=== PATIENT | female | born 1965 | race Caucasian/White ===

== ENCOUNTER 2017-01-15 10:35 | Observation (INO) | payer BC ==
--- NOTE | ~2017-01-15 | DS ---
Discharge Summary [facility] [address] [place]. [address] NAME: LE RIZZO : 61 STATUS : DIS Uvaldo PAT#: [id number] AGE: 51 ADM/REG DATE : 01/15/17 MR#: [id number] REPORT SERV DATE: 01/16/17 DICTATED BY: NANY SILVA DATE: 01/16/17 REPORT STATUS : Draft TRANSCRIBED BY: MODNeville DATE: 01/16/17 ADMISSION DATE: 01/15/2017 DISCHARGE DATE: 01/16/2017 CONDITION ON DISCHARGE: Stable. DISPOSITION: The patient will be discharged home if she is ambulatory and if she is able to ambulate steadily without feeling imbalanced. The patient will also get a vitamin B12 1000 mcg IM x1 dose shot before discharge. Diagnoses on discharge include the following: Near syncopal episode, probably secondary to hypoglycemia related to her gastric bypass or gastric sleeving surgery. This has resolved with IV fluids. The patient has received IV D5 and a half normal saline and feels much better. The patient has been advised to do eat more frequently and snack at least every two to three hours with healthy snacking and healthy snacking options provided to the patient. She is also advised to eat at least three small meals a day to avoid more hypoglycemic episodes like this. Other diagnoses that are chronic in this patient include the following: History of questionable adrenal insufficiency. This is being followed by Dr. Rudd as an outpatient basis. The patient states that she takes hydrocortisone that she has with her on a p.r.n. basis and takes it only when she feels hypoglycemic or feels like tired. She states that she took one yesterday. Hence, any testing that is going to be done in this patient now is going to be spurious. Hence, this can be tested as an outpatient hopefully when the patient is off hydrocortisone by Dr. Rudd, the emd special education teacher. Her other diagnoses that are stable at this time include, 1. Status post bilateral hip replacement, the most recent one being in the left hip that was done just a few weeks ago for which she is still on Eliquis 2.5 mg twice a day for DVT prevention. 2. Severe osteoarthritis of all the joints mostly of both hips now with hip replacement, which is strange for someone who is as young as 51 years old. 3. Early-onset osteoporosis for which patient is on medications and takes estrogen and testosterone supplements. 4. Depression/anxiety for which she takes Lexapro. 5. Hypothyroidism, stable with levothyroxine. 6. Irritable bowel syndrome-stable with Amitiza. 7. Gastroesophageal reflux disease, stable with omeprazole. 8. History of gastric bypass surgery/gastric sleeving surgery for weight loss as the patient states that she was morbidly obese before the surgery. MEDICATIONS UPON DISCHARGE: All her home medications will exactly remain the same and will be resumed. The patient will be given vitamin B12 1000 mcg intramuscular injection x1 dose before discharge. Discharge Summary [facility] [address] [place]. [address] NAME: LE RIZZO : 61 STATUS : DIS Uvaldo PAT#: [id number] AGE: 51 ADM/REG DATE : 01/15/17 MR#: [id number] REPORT SERV DATE: 01/16/17 DICTATED BY: NANY SILVA DATE: 01/16/17 REPORT STATUS : Draft TRANSCRIBED BY: BRIANL DATE: 01/16/17 Tests that were done and labs on this patient that are relevant include the following. Her hemoglobin A1c was 5.2, which is normal. Her CBC showed a WBC count of 4, hemoglobin 11.4, hematocrit of 35.9, platelet count of 404. Electrolyte profile showed normal electrolytes, BUN and creatinine. Brain natriuretic peptide was normal. Chest x-ray showed no acute cardiopulmonary abnormality. Hence, the patient is being discharged home in stable condition after all these tests have come back normal and the patient feels well. I have spent about 30 minutes coordinating discharge care of this patient including face-to- face encounter and summarizing this discharge. DICTATED BY: Manuel Baeza/LAURIE Nany Silva M.D. / [id number] CC: Manuel Baeza M.D.
--- NOTE | ~2017-01-15 | HP ---
History And Physical [facility] [id number] [place]. [address] NAME: LE DUPONT : 61 STATUS : ADM Uvaldo PAT#: [id number] AGE: 51 ADM/REG DATE : 01/15/17 MR#: [id number] REPORT SERV DATE: 01/15/17 DICTATED BY: NANY SILVA DATE: 01/15/17 REPORT STATUS : Draft TRANSCRIBED BY: MODL DATE: 01/15/17 DATE OF ADMISSION: 01/15/2017 HISTORY OF PRESENT ILLNESS: Ms. Dupont is a 51-year-old female patient who came in this morning to the ER because of near syncopal episode. The patient states that she almost passed out and felt extremely weak this morning, and her blood glucose levels were 44, and hence, she was brought to the emergency room. She states that she was getting ready to go to work and was her usual self, but all of a sudden, she felt extremely dizzy, started perspiring, and felt like passing out and she said that she almost passed out. She denies any headaches, chest pain, blurry vision. But the patient was worried that she does have a history of adrenal insufficiency and she was wondering if this almost passing out episode in anyway related to the adrenal insufficiency itself, and hence, she decided to come in. I examined the patient at bedside and who is a patrol police lieutenant is also at the bedside. At this time, the patient states that she feels extremely weak and is just worried that she almost passed out. Other than that, she has no other symptoms. One time before, the patient states that she was admitted to the intensive care unit with an allergic reaction to doxycycline, and at that time, she was found to be having adrenal insufficiency primary versus secondary and has been seeing Dr. Rudd, the aquatics specialist, for this purpose ever since. The patient since then has been diagnosed with renal tubular acidosis type 4 also. REVIEW OF SYSTEMS: Negative for any headaches, blurry vision, facial droop, neck pain, chest pain, shortness of breath, wheeze, nausea, vomiting, abdominal pain, diarrhea, dysuria, etc. Positive for hip pain and hip discomfort as the patient had a very recent hip replacement of the left hip. The patient actually takes Eliquis for this. She does still have difficulty getting around because of the replaced left hip, but she states that she has already gone back to work and she is already up and moving around even though getting around is a little difficult and different. PAST MEDICAL HISTORY: Significant for bilateral hip replacement, the left one was done most recently. The patient states that both her hips had to be replaced because she had severe osteoarthritis in both hips. The patient also has history of adrenal insufficiency, primary versus secondary; irritable bowel syndrome; status post gastric sleeve surgery; also has history of generalized anxiety. The patient does take Lexapro for this. She also has a history of hypothyroidism and gastroesophageal reflux disease. FAMILY HISTORY: Positive for hypertension in parents. Otherwise, no family history that is contributory to the current problem. SOCIAL HISTORY: The patient does not smoke or drink or do any drugs. She is . ALLERGIES: THE PATIENT DOES HAVE SIGNIFICANT ALLERGIES TO DOXYCYCLINE THAT CAUSED HER TO HAVE ANAPHYLAXIS AND KIDNEY FAILURE. SHE ALSO HAS ALLERGY TO LORTAB AND OXYCONTIN. HOWEVER, THE PATIENT DOES TAKE OXYCODONE COMBINED WITH ACETAMINOPHEN 5/325 ON AN -NEEDED History And Physical [address] [address] NAME: LE DUPONT : 61 STATUS : ADM Uvaldo PAT#: [id number] AGE: 51 ADM/REG DATE : 01/15/17 MR#: [id number] REPORT SERV DATE: 01/15/17 DICTATED BY: NANY SILVA DATE: 01/15/17 REPORT STATUS : Draft TRANSCRIBED BY: LAURIE DATE: 01/15/17 BASIS AT HOME AND SHE STATES SHE DOES FINE WITH THAT STRANGELY. MEDICATIONS: The patient also takes the following medications at home: Amitiza 8 mcg p.o. b.i.d., levothyroxine 100 mcg once a day, Prilosec 40 mg once a day, Lexapro 20 mg once a day, Celebrex 200 mg once a day, Eliquis 2.5 mg p.o. b.i.d. since her recent hip replacement, Percocet 5/325 two tablets every four hours p.r.n. for pain, estradiol and testosterone pellets. PHYSICAL EXAMINATION: GENERAL: The patient is alert, awake, oriented, and she states that she just feels extremely weak in a generalized way. VITAL SIGNS: Her vital signs, however, showed that her blood pressure is 120/57. The patient is afebrile, pulse is 60 per minute, respirations 18 per minute, and O2 sats 100% on room air. HEENT: Unremarkable. There is no facial droop or asymmetry. NECK: There is no JVD or thyromegaly. CARDIOVASCULAR SYSTEM: S1 and S2 appreciated. Sinus rhythm. No murmurs, rubs, or gallops noted. RESPIRATORY SYSTEM: Clear lungs noted. No rales or rhonchi noted. ABDOMEN: Soft, nontender, and nondistended. Bowel sounds are appreciated. No organomegaly noted. No tenderness noted. EXTREMITIES: There is no pedal edema. Pedal pulses are well felt. NEUROLOGICAL: Normal. PSYCHIATRIC: Normal. MUSCULOSKELETAL: Status post bilateral hip replacement, the most recent one being the left hip. LABORATORY DATA: The labs that I have on this patient include a CBC that shows completely normal WBC, hemoglobin and hematocrit is 11.6 and HCT is 35.9, and platelets 429. INR is 1.2. Electrolytes are normal. BUN is normal. Creatinine is normal. Troponin I is normal. Chest x-ray portable shows no acute abnormality. BNP is normal. ASSESSMENT: At this time is near syncope and severe hypoglycemia with a blood glucose level that was recorded at 44, which has come back up to 100+ now after the patient was given glucose. However, the patient does admit to quite severe weakness. Blood pressure is somewhat on the lower side right now also for her according to her. Hence, we will admit the patient for 23-hour observation, check her cortisol level and also check a urinalysis. We will follow up on her labs. We will also start her on IV fluids, namely D5 and a half- normal saline at 100 mL an hour for the next 23 hours, so this might give her some strength back. We will reassess her getting around and walking around in a.m., and if she is able to do well and feels better, she will be discharged home in the morning of 01/16/2017. RRA/MODL Nany Hwang History And Physical [facility] [address] [address] NAME: LE DUPONT : 61 STATUS : ADM Uvaldo PAT#: [id number] AGE: 51 ADM/REG DATE : 01/15/17 MR#: [id number] REPORT SERV DATE: 01/15/17 DICTATED BY: NANY SILVA DATE: 01/15/17 REPORT STATUS : Draft TRANSCRIBED BY: MODL DATE: 01/15/17 Manuel Silva / [id number] CC: Manuel Baeza M.D.
[~2017-01-15 10:35] MED LIST: ALEVE220 MG PO; AMITIZA8 MCG PO; AMOXIL500C PO; ASCRIPTIN PO; ATV.5 PO; CORTEF5 PO; CYMBALTA30 PO; FLEX PO; FLORINEF0.1 MG PO; HORMONE REPLACEMENT; LEXAPRO20 PO; MCZ25 PO; NEXIUM40 PO; OXYCON10 PO; P20 PO; PCET PO; PRILOSEC40 MG PO; PROTONIX PO; SYN075 PO; SYN1 PO; ZANTAC150 MG PO; [UNRECOGNIZED DRUG - REMARK] IM
[2017-01-15 11:20] LABS: BASOPHILS 0.2 %; BASOPHILS ABSOLUTE 0.01 10/3/uL (0.0-0.16); EOSINOPHILS 0.6 %; EOSINOPHILS ABSOLUTE 0.03 10/3/uL (0.0-0.53); HEMOGLOBIN 11.6 g/dL (12.0-16.0); IMMATURE GRANULOCYTES 0.2 %; IMMATURE GRANULOCYTES ABSOLUTE 0.01 10/3/uL (0.0-0.11); LYMPHOCYTES 25.8 %; LYMPHOCYTES ABSOLUTE 1.38 10/3/uL (0.67-4.30); MEAN CORPUS HGB CONC 32.3 g/dL (32.0-36.0); MEAN CORPUSCULAR HEMOGLOB 28.2 pg (26.0-34.0); MEAN CORPUSCULAR VOLUME 87.3 fL (80-100); MEAN PLATELET VOLUME 9.4 fL (9.2-13.0); MONOCYTES 6.2 %; MONOCYTES ABSOLUTE 0.33 10/3/uL (0.21-1.20); NEUTROPHILS ABSOLUTE 3.59 10/3/uL (2.02-8.40); RBC DISTRIBUTION WIDTH 13.8 % (12.0-16.0); RED CELL COUNT 4.11 10/6/uL (4.0-5.6); WHITE BLOOD CELLS 5.4 10/3/uL (4.5-10.5)
[2017-01-15 11:22] LABS: ER CBC TAT 0 Hrs 06 MinsNP; HEMATOCRIT 35.9 % (36.0-48.0); MANUAL DIFF NO %; PLATELET COUNT 429 10/3/uL (150-400)
[2017-01-15 11:27] LABS: INTERNATIONAL NORMAL RATI 1.2 UNITS (-); PARTIAL THROMBO TIME 34.3 SEC (22.5-37.2); PROTIME (NOT ORD) 15.4 SEC (12.0-14.5)
[2017-01-15 11:36] LABS: BUN (BLOOD UREA NITROGEN) 13 MG/DL (6-23); CALCIUM, SERUM 8.6 MG/DL (8.5-10.4); CHEST PAIN PROFILE TAT 0 Hrs 22 Mins; CHLORIDE, SERUM 105 MMOL/L (96-112); CO2 (CARBON DIOXIDE) 27 MMOL/L (24-34); CREATININE 0.82 MG/DL (0.55-1.02); GFR AFRICAN AMERICAN 95 ML/MIN (>=60); GFR NON AFRICAN AMERICAN 82 ML/MIN (>=60); GLUCOSE, SERUM 87 MG/DL (60-99); POTASSIUM, SERUM 3.9 MMOL/L (3.5-5.3); SODIUM, SERUM 137 MMOL/L (135-148); TROPONIN I <0.02 NG/ML (<0.05)
[2017-01-15] MEDS ORDERED: SYN1 PO (13:18)
[2017-01-15] MEDS ORDERED: PRILOSEC40 MG PO (13:18)
[2017-01-15] MEDS ORDERED: LEXAPRO20 PO (13:18)
[2017-01-15] MEDS ORDERED: AMITIZA8 MCG PO (13:18)
[2017-01-15] MEDS ORDERED: CELEBREX2 PO (13:19)
[2017-01-15] MEDS ORDERED: ELIQUIS 2.5 MG2.5 MG PO (13:19)
[2017-01-15] MEDS ORDERED: PCET PO (13:20)
[2017-01-15] MEDS ORDERED: [UNRECOGNIZED DRUG - OTHER] IJ (13:30)
[2017-01-15] MEDS ORDERED: TESTOSTERONE PELLET IJ (13:31)
[2017-01-16 04:58] LABS: BASOPHILS 0.3 %; BASOPHILS ABSOLUTE 0.01 10/3/uL (0.0-0.16); EOSINOPHILS 1.3 %; EOSINOPHILS ABSOLUTE 0.05 10/3/uL (0.0-0.53); HEMATOCRIT 35.9 % (36.0-48.0); HEMOGLOBIN 11.4 g/dL (12.0-16.0); IMMATURE GRANULOCYTES 0.3 %; IMMATURE GRANULOCYTES ABSOLUTE 0.01 10/3/uL (0.0-0.11); LYMPHOCYTES 39.8 %; LYMPHOCYTES ABSOLUTE 1.59 10/3/uL (0.67-4.30); MEAN CORPUS HGB CONC 31.8 g/dL (32.0-36.0); MEAN CORPUSCULAR HEMOGLOB 27.9 pg (26.0-34.0); MEAN CORPUSCULAR VOLUME 87.8 fL (80-100); MEAN PLATELET VOLUME 9.3 fL (9.2-13.0); MONOCYTES 10.5 %; MONOCYTES ABSOLUTE 0.42 10/3/uL (0.21-1.20); NEUTROPHILS 47.8 %; NEUTROPHILS ABSOLUTE 1.92 10/3/uL (2.02-8.40); PLATELET COUNT 404 10/3/uL (150-400); RED CELL COUNT 4.09 10/6/uL (4.0-5.6)
[2017-01-16 05:00] LABS: MANUAL DIFF NO %
[2017-01-16 05:10] LABS: BUN (BLOOD UREA NITROGEN) 12 MG/DL (6-23); CALCIUM, SERUM 8.1 MG/DL (8.5-10.4); CHLORIDE, SERUM 108 MMOL/L (96-112); CO2 (CARBON DIOXIDE) 25 MMOL/L (24-34); CREATININE 0.71 MG/DL (0.55-1.02); GFR AFRICAN AMERICAN 113 ML/MIN (>=60); GFR NON AFRICAN AMERICAN 97 ML/MIN (>=60); GLUCOSE, SERUM 83 MG/DL (60-99); POTASSIUM, SERUM 3.9 MMOL/L (3.5-5.3); SODIUM, SERUM 140 MMOL/L (135-148)
== END 2017-01-16 09:40 | disposition home or self-care (01) ==
LOC: ER 10:35 → CDU1 13:04 → CDU2 13:41
PROVIDERS: Emergency Medicine
DX: R55 Syncope and collapse (principal); M19.90 Unspecified osteoarthritis, unspecified site; F32.9 Major depressive disorder, single episode, unspecified; K58.9 Irritable bowel syndrome, unspecified; E16.2 Hypoglycemia, unspecified; K21.9 Gastro-esophageal reflux disease without esophagitis; Z98.84 Bariatric surgery status; Z96.643 Presence of artificial hip joint, bilateral; Z88.1 Allergy status to other antibiotic agents
CPT/HCPCS: 71010; 80048; 82533; 83036; 83735; 83880; 84484; 85025; 85610; 85730; 93005; 96374; 99285; A9270-GY; G0378